=== PATIENT | female | born 1960 | race Asian ===

== ENCOUNTER 2019-12-24 10:26 | Outpatient (CLI) | payer OTHER | END 2019-12-24 19:01 | disposition home or self-care (01) | LOC: RAD 10:26 | DX: R09.1 Pleurisy (principal) ==

== ENCOUNTER 2020-04-18 14:50 | Outpatient (CLI) | payer OTHER | END 2020-04-18 19:16 | disposition home or self-care (01) | LOC: RESP 14:50 | DX: R07.9 Chest pain, unspecified (principal); I10 Essential (primary) hypertension; E11.9 Type 2 diabetes mellitus without complications ==

== ENCOUNTER 2020-05-02 11:03 | Outpatient (CLI) | payer OTHER | END 2020-05-02 20:30 | disposition home or self-care (01) | LOC: RESP 11:03 | DX: R07.9 Chest pain, unspecified (principal); I10 Essential (primary) hypertension; E11.9 Type 2 diabetes mellitus without complications ==